=== PATIENT | female | born 1995 | race Caucasian/White ===

== ENCOUNTER 2017-07-23 12:34 | Emergency (ER) | payer OTHER ==
[~2017-07-23] VITALS: Ht 170.2 cm; Wt 64.0 kg
[~2017-07-23 12:34] MED LIST: DAILY VITE1 EAC1 PO
[2017-07-23] MEDS ORDERED: PREDNISONE20 MG PO (18:46)
[2017-07-23] MEDS ORDERED: BENADRYL50 MG PO (18:46)
[2017-07-23] MEDS ORDERED: PEPCID20 MG PO (18:46)
[2017-07-23] MEDS ORDERED: EPIPEN ADU0.3 MG/0.3 IM (18:47)
[2017-07-23 19:00] VITALS: BP 129/82
== END 2017-07-23 19:01 | disposition home or self-care (01) ==
LOC: EME 12:34
DX: T41.3X5A Adverse effect of local anesthetics, initial encounter (principal); T49.0X5A Adverse effect of local antifungal, anti-infective and anti-inflammatory drugs, initial encounter; Z98.890 Other specified postprocedural states
CPT/HCPCS: 99281; 99284; J7512